=== PATIENT | female | born 2000 | race Caucasian/White ===

== ENCOUNTER 2020-02-15 14:24 | Outpatient (CLI) | payer OTHER, SELFPAY ==
--- NOTE | 2020-02-15 | ECHO_ITS ---
Patient Info Name: Erica Manuel Age: 19 years : 2000 Gender: Female Ht: 60 in Wt: 108 lbs BSA: 1.44 m2 HR: 72 bpm BP: 130 / 75 mmHg Technical Quality: Good Exam Date: 02/15/2020 3:09 PM Exam Location: [facility] Patient Status: Outpatient Admit Date: 02/15/2020 Staff Ordering Physician: Sung Ramirez MD Sales Solutions Representative: Jeri Gandhi RDCS Attending Provider: Sung Ramirez MD Exam Type: CA echo doppler color flow Study Info Indications - valvular disease Complete two-dimensional, color flow and Doppler transthoracic echocardiogram is performed. Summary 1. Complete two-dimensional, color flow and Doppler transthoracic echocardiogram is performed. 2. Left ventricular chamber dimension is normal. 3. Left ventricular systolic function is normal, estimated at 60-65%. 4. The left ventricular diastolic function is normal. 5. E/e' 6 is not elevated. 6. There is trace tricuspid valve regurgitation. 7. No pulmonary hypertension, estimated pulmonary arterial systolic pressure is 30 mmHg. 8. There is trace pulmonic regurgitation. Left Ventricle E/e' 6 is not elevated. Left ventricular chamber dimension is normal. Left ventricular systolic function is normal, estimated at 60-65%. The left ventricular diastolic function is normal. Right Ventricle Right ventricular chamber dimension is normal. Right ventricular systolic function is normal. Left Atria Left atrial chamber dimension is normal. Right Atria Right atrial chamber dimension is normal. Aortic Valve The aortic valve is trileaflet. There is no aortic valve stenosis. There is no aortic valve regurgitation. Pulmonic Valve There is trace pulmonic regurgitation. Mitral Valve There is no mitral valve stenosis. There is no mitral valve regurgitation. Tricuspid Valve There is trace tricuspid valve regurgitation. No pulmonary hypertension, estimated pulmonary arterial systolic pressure is 30 mmHg. Pericardium/Pleural There is no pericardial effusion. Inferior Vena Cava Normal inferior vena cava with >50% collapse upon inspiration consistent with normal right atrial pressure, 5 mmHg. Aorta The aortic root size at the sinus of Valsalva is normal. Left Ventricular Outflow Tract Name Value Normal LVOT 2D LVOT Diameter 2.0 cm LVOT Doppler LVOT Peak Gradient 5 mmHg LVOT Mean Gradient 3 mmHg LVOT VTI 20 cm LVOT VTI/AV VTI Ratio 0.9 LVOT Stroke Volume 62 ml LVOT CO 13.5 l/min LVOT CI 9.4 l/min/m2 Pulmonic Valve Name Value Normal PV Doppler PV Peak Gradient 5 mmHg Mitral Valve
== END 2020-02-15 14:25 | disposition home or self-care (01) ==
LOC: ANHCARD 14:26
PROVIDERS: PCP Internal Medicine; Visit Provider Psychiatry & Neurology Neurology
DX: I38 Endocarditis, valve unspecified (principal)
CPT/HCPCS: 93306

== ENCOUNTER 2021-02-26 13:24 | Emergency (ER) | payer BC, SELFPAY ==
[2021-02-26 14:14] VITALS: BP 103/61; PULSE 95; RESP 16; TEMP 37.6; O2SAT 99
--- NOTE | 2021-02-26 15:03 | ED.URI ---
HPI - URI/Sore Throat General Chief Complaint: Upper Respiratory Infection Stated Complaint: Sore Throat Time Seen by Provider: 02/26/21 14:50 Source: patient, RN notes reviewed and old records reviewed History of Present Illness HPI Narrative: 20-year-old female who presents to [facility] with complaints of 2-day history of sore throat, sinus pressure with no drainage noted. Patient rates her pain 7/10 to her throat which she reports is sharp and difficult to swallow. Patient denies any known fevers, chills or sweats, denies any nausea vomiting or diarrhea or any body aches. She reports that her immunizations are up to date. MD elicited complaint: sore throat Related Data Allergies Allergy/AdvReac Type Severity Reaction Status Date / Time No Known Allergies Allergy Verified 02/26/21 14:29 Review of Systems Review of Systems: CONSTITUTIONAL: Denies fever, chills, or sweats. EYES: Denies visual changes, redness, or discharge. ENT: Denies rhinorrhea, congestion,positive for sore throat, no otalgia. CARDIOVASCULAR: Denies chest pain, palpitations, or edema. RESPIRATORY: Denies cough or dyspnea. GASTROINTESTINAL: Denies abdominal pain, nausea, vomiting, or diarrhea. GENITOURINARY: Denies dysuria or hematuria. SKIN: Denies rash or itching. MUSCULOSKELETAL: Denies back pain, joint pain,no body aches NEUROLOGIC: Denies headache, numbness, or weakness. PSYCHIATRIC: Denies anxiety or depression. All systems reviewed & are unremarkable except as noted in HPI and below PMFSH Past Medical History Medical History (Updated 03/02/21 @ 20:37 by Yulisa Guerrier NP) Syncope Surgical History Surgical History (Updated 02/26/21 @ 15:20 by Yulisa Guerrier NP) No history of previous surgery Family History Family History (Updated 02/26/21 @ 15:20 by Yulisa Guerrier NP) Father Hypertension Acute myocardial infarction Social History Social History Smoking status: Never smoker Second hand tobacco smoke exposure: No Alcohol intake: never Substance use: never Comments At time of signature, agree with nursing past medical, surgical, social and family history. There is no relevant family history pertinent to the presenting complaint Exam Narrative: GENERAL: Well-appearing, well-nourished, and in no acute distress. HEAD: Normocephalic, atraumatic. EYES: PERRLA and EOMI. ENT: Nares clear, no rhinorrhea or epistaxis, reports some sinus pressure. Mucous membranes moist.TM's normal with good light reflex, Pus pockets noted to right tonsil with tonsil enlargement and redness NECK: Supple.lymphadenopathy bilateral neck CHEST: Clear to auscultation. No respiratory distress. SAO2 99% on room air. HEART: Regular rate and rhythm. No murmur heard. Normal peripheral pulses. ABDOMEN: Soft, nontender, nondistended, normal active bowel sounds. EXTREMITIES: Normal range of motion. No edema. SKIN: Warm, dry, no rash. NEURO: No focal deficits. Alert and oriented x3. Course Vital Signs Vital signs: Vital Signs Temperature 37.6 C 02/26/21 14:14 Pulse Rate 95 02/26/21 14:14 Respiratory Rate 16 02/26/21 14:14 Blood Pressure 103/61 02/26/21 14:14 Pulse Oximetry 99 02/26/21 14:14 Temperature 37.6 C 02/26/21 14:14 Pulse Rate 95 02/26/21 14:14 Respiratory Rate 16 02/26/21 14:14 Blood Pressure 103/61 02/26/21 14:14 Pulse Oximetry 99 02/26/21 14:14 MDM - URI/Sore Throat Differential Diagnosis Differential diagnosis: Likely upper respiratory infection, pharyngitis and other (exudative tonsilitis, acute tonsilitis) Medical Records Attestation: I reviewed the patient's medical records. Lab Data Attestation: I reviewed the patient's lab results. Lab results narrative: strep screen: negative Labs: Strep Screen Presumptive Negative *(Reference Range: Negative)* Critical Care Time Cri
== END 2021-02-26 15:30 | disposition home or self-care (01) ==
PROVIDERS: Emergency Provider Registered Nurse; PCP Internal Medicine
DX: J03.90 Acute tonsillitis, unspecified (principal)
CPT/HCPCS: 87081; 87880; 99213; G0463